=== PATIENT | female | born 1980 | race African-American/Black ===

== ENCOUNTER 2024-06-27 17:27 | Emergency (ER) | payer OTHER, SELFPAY ==
[2024-06-27 17:27] VITALS: BMI 23.5
[2024-06-27 17:33] VITALS: BP 112/91
--- NOTE | 2024-06-27 18:41 | ED.GENMED ---
History of Present Illness
General
Chief Complaint: Crisis Evaluation
Source: patient and direct care professional
Exam Limitations: none
Time Seen by Provider: 06/27/24 18:09
History of Present Illness
History of Present Illness:
This is a 43 year old female that comes in with multiple complaints. Patient states that she is not eating but she has eaten junk food. States that she can't swallow her pills and sometimes the food. hydraulic blocker with patient states that patient has
c/o the pills being to bid and the senior government program analyst found them in multiple tissues. States that she has been walking around naked which she normally doesn't do and that today she tried to jump out of the car on the way here. Patient states that
she as upset with the staff as they get away with everything. States that she did vomit today. Denies any fever, chills, chest pain, SOB, abd pain, nausea, vomiting, headache, dizziness, urinary burning.
Past History
Past History
ED Past Medical History: Asthma, HTN, Hypercholesterolemia, Hypothyroidism and Psychiatric (Anxiety, Biplar, Depression, PTSD, Mood disorder)
ED Past Surgical History: None
Social History
Tobacco: Non-smoker
Alcohol: None
Personal: Single
Living: with family
Review of Systems
Review of Systems
All Other Systems: ROS reviewed and negative except as documented in HPI and ROS
Constitutional: Reports no symptoms; Denies fever or chills
EENT: Reports no symptoms
Respiratory: Reports cough; Denies trouble breathing
Cardiac: Reports no symptoms; Denies chest pain
ABD/GI: Reports vomiting; Denies abdominal pain, nausea or diarrhea
: Reports no symptoms; Denies dysuria, frequency or urgency
Musculoskeletal: Reports no symptoms
Skin: Reports no symptoms
Neurological: Denies dizzy or headache
Psychiatric: Reports depression and other (Mood disorder)
Phy Exam
General Physical Exam
General Presentation: no apparent distress
General age: appears stated age
General Skin: warm and dry
General Habitus: normal
General Mental: alert
General Hydration: appears well hydrated
ENT Exam
ENT Exam: TM's normal, pharynx normal and neck supple
Eye Exam
Eye Exam: EOMI
Cardiovascular Exam
Cardiovascular Exam: regular rate/rhythm, no edema and normal peripheral pulses
Pulmonary Exam
Pulmonary Exam: no respiratory distress, no rales, chest non tender, no crackles and other (Course breath sounds throughout with course cough, )
Gastrointestinal Exam
Gastrointestinal Exam: normal bowel sounds, non tender, soft, no organomegaly, no pulsatile mass and non distended
Musculoskeletal Exam
Musculoskeletal Exam: full ROM and no edema
Skin Exam
Skin Exam: normal color, warm/dry, no rash and no petechia
Psychiatric Exam
Psychiatric Exam: normal mood/affect
Course
Orders/Labs/Results
Orders:
Orders
06/27/24 18:40
Crisis Consult Urgent
Reason for Consult: not eating, Tried to jump out of a car, walking around naked
Comment: hidding her pills
Test Result ONCE
06/27/24 18:42
CR Chest - 2 Views Urgent
Comment:
Reason For Exam: Cough
06/27/24 19:54
Complete Blood Count/With Diff Urgent
Comprehensive Metabolic Panel Urgent
HCG, Serum Qualitative Screen Urgent
Manual Differential Urgent
06/27/24 20:41
Urinalysis Reflex To Culture Urgent
Date Specimen was Collected: 06/27/24
Time Specimen was Collected: 20:40
Urine Drug Abuse Screen Urgent
Date Specimen was Collected: 06/27/24
Time Specimen was Collected: 20:41
Urine Microscopic Reflex Cult Urgent
Urine Culture Urgent
ISH Source: U
Specimen Description:
Date Specimen was Collected: 06/27/24
Time Specimen was Collected: 20:40
06/27/24 20:55
Potassium Chloride [KCl] 40 meq 0.9% Sodium Chloride 250 ml [Nss] 250 ml IV NOW
06/27/24 20:59
Doxycycline [Vibramycin] 100 mg PO NOW STA
Abnormal Lab Results
06/27/24 06/27/24
19:54 20:41
WBC 15.6 H 10^3/uL
(4.8-10.8)
MCH 33.1 H pg
(27.0-31.0)
MCHC 38.1 H g/dL
(33.0-37.0)
Abs Neuts (Manual) 10.7 H 10^3/uL
(1.4-6.5)
Sodium 132 L mmol/L
(135-145)
Potassium 2.9 L mmol/L
(3.5-5.1)
Chloride 88 L mmol/L
(98-107)
Carbon Dioxide 31 H mmol/L
(22-30)
Glucose 127 H mg/dl
(70-99)
AST 69 H U/L
(14-36)
Urine Ketones 2+ A
(Negative)
Urine Bilirubin 1+ A
(Negative)
Leukocyte Esterase Rfl 1+ A
(Negative)
Urine Bacteria (Reflex) Many A
(Negative)
06/27/24 19:54
06/27/24 19:54
Leukocytosis, Sodium slightly low. Hypokalemia, Chloride low, Carbon dioxide slightly elevated. Hyperglycemia. AST elevation. Urine questionable for infection. HCG negative. Urine drug negative.
Vital Signs
Initial and Last Documented VS:
Initial Vital Signs
Temp Pulse Resp BP Pulse Ox
97.8 F 105 18 112/91 95
06/27/24 17:33 06/27/24 17:33 06/27/24 17:33 06/27/24 17:33 06/27/24 17:33
Last Documented Vital Signs
Temp Pulse Resp BP Pulse Ox
98.5 F 83 28 103/78 94
06/27/24 20:00 06/28/24 00:45 06/28/24 00:45 06/28/24 00:00 06/28/24 00:45
MDM/Problems Addressed
Differential Diagnosis Includes:
Mood disorder, PNA,
MDM/Problems Addressed:
This is a 43 year old female that comes in with direct care professional. Patient states that she tried to jump out of the car as she was upset with the staff. Told that she is not eating, taking her medication and they were found in multiple tissues.
Will check labs, Urine and X-rays due to cough. Crisis to see.
Back into see patient with Nursing. Swallowing function testing done and patient passed.
Chronic conditions affecting care: Psychiatric illness
Acute Exacerbation and/or Progression of Chronic Illness: Psychiatric illness
*Radiology
Radiology exam reviewed: preliminary read by ED provider (Chest- Questionable left lower lobe Pneumonia) and radiology read reviewed (Chest-Small bandds of opacity in the right middle lobe, lingula, and left lower lobe suspicious for mild bilateral
pneumonia in the setting of cough. Peripheral endobronchial infection or subsegmentl atelectasis/scarring are alternative diagnostic possibilities. Mild bilateral lung hyperinflation)
*Pulse Oximetry
Patient hypoxic: no
*EKG
Interpreted by ED Provider?: NA
Rate: EKG- N/A
*Health Advisor Interpretation
Rate: Health Advisor- N/A
*Critical Care Note
Total Time (30-74mins, 75-104mins- exclusive of procedures): Not Applicable
ED Attending Note
-
Portions of this chart may have been created with voice recognition software.� Occasional wrong word or��sound alike� substitutions may have occurred due to the inherent limitations of voice recognition software.
Discharge Plan
Departure
Patient Disposition: Home (Routine Discharge)
Date of Disposition: 06/28/24
Time of Disposition: 01:37
Patient with high blood pressure during this ER visit?: No
Condition: Good
Covid-19: Not Applicable
Discharge Problem:
Pneumonia, Acute hypokalemia
Instructions: Hypokalemia, Pneumonia, Adult (DC)
Prescriptions:
New
doxycycline hyclate 100 mg capsule
100 mg PO BID Qty: 20 0RF
potassium chloride 20 mEq tablet,ER particles/crystals
20 meq PO DAILY Qty: 3 0RF
Referrals:
Peggy Elkins DO [Family Provider] - Follow up in 2-3 days
Activity Restrictions/Additional Instructions:
As discussed, your blood work shows that your white blood cell count is elevated. Your chest x-ray shows that you have a bilateral pneumonia. You also have a very low potassium level. You have been given IV potassium here and a prescription for home
for the next 3 days. You also had a prescription for an antibiotic to treat the Pneumonia. Please increase your water intake to 8-8oz glasses daily. Follow up with the family doctor in the next 2-3 days for repeat labs to check the potassium level.
Tylenol for any fever. IF YOU HAVE INCREASED SHORTNESS OF BREATH, OR YOU HAVE ANY OTHER CONCERNS PLEASE RETURN TO THE EMERGENCY ROOM
Interventions
Interventions:
*Risk Screen - Suicide Last Done: 06/27/24 17:28
*General Assessment Last Done: 06/27/24 17:33
*Neglect/Abuse Screening Last Done: 06/27/24 17:33
*ED COVID-19 Vaccine History Last Done: 06/27/24 17:33
Discharge Date and Time
Print Language: NAMIBIAN
[2024-06-27 20:00] VITALS: BP 112/84
[2024-06-27 20:25] LABS: HCG, Serum Qualitative Screen Negative
[2024-06-27 20:26] LABS: ALT (SGPT) 15 U/L (0-35); AST (SGOT) 69 U/L (14-36); Albumin 3.6 g/dl (3.5-5.0); Alkaline Phosphatase 98 U/L (38-126); Blood Urea Nitrogen 12 mg/dl (7-17); Calcium 9.3 mg/dl (8.4-10.2); Carbon Dioxide 31 mmol/L (22-30); Chloride 88 mmol/L (98-107); Glucose 127 mg/dl (70-99); Potassium 2.9 mmol/L (3.5-5.1); Sodium 132 mmol/L (135-145); Total Bilirubin 0.6 mg/dl (0.2-1.3); Total Protein 6.9 g/dl (6.3-8.2); eGFR > 60.00
[2024-06-27 20:32] LABS: Mean Corp Hgb Conc. 38.1 g/dL (33.0-37.0); Mean Corpuscular Hgb 33.1 pg (27.0-31.0); Mean Platelet Volume 8.2 fL (7.4-10.4); Platelet Count 183 10^3/uL (130-400); Red Blood Cell Count 4.83 10^6/uL (4.20-5.40); Red Cell Dist. Width 13.2 % (11.5-14.5); White Blood Cell Count 15.6 10^3/uL (4.8-10.8)
[2024-06-27 20:38] LABS: Absolute Neutrophils -Man Diff 10.7 10^3/uL (1.4-6.5); Band Neutrophils 0 % (0-3); Lymphocytes 23 % (20-51); Metamyelocytes 1 % (-); Monocytes 5 % (2-9); Myelocytes 2 % (-); Segmented Neutrophils 69 % (42-75)
[2024-06-27 20:39] LABS: Normal RBC Morphology Yes; Platelets Checked Yes; Total Cells Counted 100
[2024-06-27 20:58] LABS: Urine Albumin Trace (Neg - Trace); Urine Bilirubin 1+ (Negative); Urine Character Clear (Clear); Urine Color Yellow; Urine Glucose Negative (Negative); Urine Ketone 2+ (Negative); Urine Leukocyte 1+ (Negative); Urine Nitrite Negative (Negative); Urine Occult Blood Negative (Negative); Urine Specific Gravity 1.015 (<1.030); Urine Urobilinogen 1+ (Neg - 1+)
[2024-06-27 21:11] LABS: Amphetamines Negative (Negative); Barbiturates Negative (Negative); Benzodiazepines Negative (Negative); Buprenorphine Negative (Negative); Cocaine Negative (Negative); Marijuana Negative (Negative); Methadone Negative (Negative); Methamphetamines Negative (Negative); Opiates Negative (Negative); Phencyclidine Negative (Negative); Tricyclic Antidepressants Negative (Negative)
[2024-06-27 21:14] LABS: Urine Squamous Cell >30 /LPF (Few); Urine Triple Phosphate Crystal Present
[2024-06-27 21:15] LABS: Urine Bacteria Many (Negative); Urine Red Blood Cell 0-2 /HPF (0-2)
[2024-06-27] MEDS: KCL 270 MEQ IV (21:31)
[2024-06-27] MEDS: VIBRAMYCIN 100 MG PO (21:54)
[2024-06-28] VITALS: BP 103/78
[2024-06-28 01:00] VITALS: BP 117/80
== END 2024-06-28 01:54 | disposition home or self-care (01) ==
LOC: EMR 17:27
PROVIDERS: Clinical Nurse Specialist Family Health; EMERGENCY PHYSICIAN Emergency Medicine; FAMILY PHYSICIAN Internal Medicine
DX: J18.9 Pneumonia, unspecified organism (principal); E87.6 Hypokalemia
CPT/HCPCS: 99285; 96365; 96366 ×3; 71046; 80053; 80306; 81003; 81015; 84703; 85025; 87086